=== PATIENT | female | born 1955 | race Caucasian/White ===

== ENCOUNTER → 2016-10-01 | Outpatient (CLI) | payer MEDICARE, OTHER ==
[~2016-10-01] MED LIST: ANTIVERT 25MG T25 MG PO; CILOSTAZOL50 MG PO; DOXYCYCLINE HY100 MG PO; ECOTRIN81 MG PO; FERROUS SULFAT325 M2 PO; FLAGYL500 MG PO; GLUCOPHAGE1000 MG PO; HUMALOG100 UNIT/2 SQ; HYDROCODON-ACE1 EAC6 PO; K-TAB ER20 MEQ PO; LANTUS100 UNIT/1 SQ; LASIX TAB 20 MG20 MG PO; LASIX40 MG PO; LEVAQUIN750 MG PO; LIPITOR TAB 2020 MG PO; LIPITOR40 MG PO; NORVASC 5 MG TAB5 MG PO; OMEGA-31000 MG PO; PLAVIX75 MG PO; PLETAL 100 MG100 MG PO; PROZAC20 MG PO; TENORMIN 50 MG50 MG PO; VALIUM 2 MG TAB2 MG PO; XANAX1 MG PO; ZANTAC150 MG PO
== END ==
LOC: KOH-I 08:52
DX: R26.0 Ataxic gait (principal); R29.6 Repeated falls; M50.31 Other cervical disc degeneration, high cervical region
CPT/HCPCS: 72125